=== PATIENT | female | born 2000 | race Caucasian/White ===

== ENCOUNTER 2020-10-06 10:38 | Emergency (ER) | payer SELFPAY ==
[~2020-10-06] VITALS: Ht 165.1 cm; Wt 63.6 kg
[~2020-10-06 10:38] MED LIST: ABILIFY2 MG PO; BENTYL 10MG10 MG/CAP PO; CELEXA 20MG20 MG/TAB PO; DEPO-PROVER150 MG/M1 IM; DESYREL 50MG50 MG PO; PEPCID 20MG TAB20 MG PO; PRILOSEC 20MG20 MG PO; STRATTERA 40MG40 MG PO; VYVANSE30 MG PO; ZOFRAN 4MG T4 MG/TAB PO; [UNRECOGNIZED DRUG - OTHER]
[2020-10-06 11:04] LABS: COLLECTION METHOD CLEAN CATCH
[2020-10-06 11:14] LABS: MUCOUS Present /lpf; PH 7 (5-8); SQUAMOUS EPITHELIAL 0-2 /hpf; URINE APPEARANCE Clear; URINE BACTERIA None Seen /hpf; URINE BILIRUBIN Negative (NEGATIVE); URINE BLOOD 1+ (NEGATIVE); URINE COLOR Straw; URINE GLUCOSE Negative (NEGATIVE); URINE KETONE Negative (NEGATIVE); URINE LEUKOCYTE ESTERASE Negative (NEGATIVE); URINE NITRATE Negative (NEGATIVE); URINE PROTEIN(semi-quant) Negative (NEGATIVE); URINE RBC 0-2 /hpf; URINE UROBILINOGEN Negative (NEGATIVE)
[2020-10-06] MEDS ORDERED: FLAGYL500 MG PO (12:07)
[2020-10-06 12:15] VITALS: BP 134/78; PULSE 76; TEMP 98.2
== END 2020-10-06 12:17 | disposition home or self-care (01) ==
LOC: COL.ER 10:38
PROVIDERS: Nurse Practitioner
DX: N76.0 Acute vaginitis (principal)

== ENCOUNTER 2021-02-10 20:27 | Emergency (ER) | payer MEDICAID ==
[~2021-02-10] VITALS: Ht 172.7 cm; Wt 75.9 kg
[~2021-02-10 20:27] MED LIST changes: +FLAGYL500 MG PO
[2021-02-10 20:43] LABS: COLLECTION METHOD CLEAN CATCH
[2021-02-10 20:58] LABS: AMORPHOUS CRYSTAL Present /uL; MUCOUS Present /lpf; PH 7 (5-8); SQUAMOUS EPITHELIAL 0-2 /hpf; URINE APPEARANCE Cloudy; URINE BACTERIA Rare /hpf; URINE BILIRUBIN Negative (NEGATIVE); URINE BLOOD Negative (NEGATIVE); URINE COLOR Yellow; URINE GLUCOSE Negative (NEGATIVE); URINE KETONE Negative (NEGATIVE); URINE LEUKOCYTE ESTERASE Negative (NEGATIVE); URINE NITRATE Negative (NEGATIVE); URINE PROTEIN(semi-quant) Negative (NEGATIVE); URINE RBC 0-2 /hpf; URINE UROBILINOGEN Negative (NEGATIVE)
[2021-02-10 21:38] VITALS: BP 117/78; PULSE 91; TEMP 97.9
== END 2021-02-10 21:38 | disposition home or self-care (01) ==
LOC: COL.ER 20:27
PROVIDERS: Nurse Practitioner
DX: O26.892 Other specified pregnancy related conditions, second trimester (principal); M54.5 Low back pain; Z91.041 Radiographic dye allergy status; Z91.040 Latex allergy status; Z87.891 Personal history of nicotine dependence; Z3A.19 19 weeks gestation of pregnancy

== ENCOUNTER 2021-05-17 16:40 | Emergency (ER) | payer MEDICAID ==
[~2021-05-17] VITALS: Ht 172.7 cm; Wt 90.9 kg
[2021-05-17 17:15] VITALS: TEMP 98.2
[2021-05-17 19:03] VITALS: BP 124/71; PULSE 90
--- NOTE | 2021-05-17 19:13 | NUR ---
184- THIS NURSE IN ROOM TO COLLECT FM STRIP. PT LAYING SUPINE, SIGNIFICANT OTHER AT BEDSIDE. PT STATES SHE IS BEING SEEN IN THE ER FOR LEFT HIP PAIN, DENIES ANY CONCERNS WITH . EFM X2 APPLIED. PT REPOSITIONED TO LEFT WEDGE. 1854- PO FLUIDS PROVIDED. 1912- MONITORING DC'D AT THIS TIME FOLLOWING REASSURING FHT. QUESTIONS ENCOURAGED AND ANSWERED. ER STAFF NOTIFIED OF REASSURING FHT. TIME ON MONITORING STRIP INCORRECT, STRIP RUN FROM [id number]. CORRECT TIMES WRITTEN ON PAPER STRIP.
== END 2021-05-17 19:03 | disposition home or self-care (01) ==
LOC: COL.ER 16:40
DX: O99.891 Other specified diseases and conditions complicating pregnancy (principal); G57.12 Meralgia paresthetica, left lower limb; M54.9 Dorsalgia, unspecified; Z3A.32 32 weeks gestation of pregnancy

== ENCOUNTER 2021-07-04 12:30 | Outpatient (CLI) | payer MEDICAID ==
--- NOTE | 2021-07-04 13:15 | NUR ---
Patient c/o noticing leaking of fluid a couple of hours ago, reports it was clear, unsure on amount. Denies sexual intercourse in past 48 hours, reports her cervix was checked today or yesterday at OBGYN appointment. SVE closed/50/high, dry exam, no fluid leaking with exam, amnitrace negative. Patient denies requiring a umesh pad, denies any continued leaking of fluid, denies contractions, vaginal bleeding. Reports positive movement. Patient requesting to get out of here as soon as possible. Accompanied by significant other. Ambulatory to unit.
[2021-07-04 13:28] VITALS: BP 129/76; PULSE 90; TEMP 98.1
--- NOTE | 2021-07-04 13:35 | NUR ---
Discharged to home, has reviewed monitor strip, verbal okay to discharge home.
== END 2021-07-04 13:35 | disposition home or self-care (01) ==
LOC: LDRO 12:30
DX: O42.90 Premature rupture of membranes, unspecified as to length of time between rupture and onset of labor, unspecified weeks of gestation (principal); Z3A.00 Weeks of gestation of pregnancy not specified

== ENCOUNTER 2021-07-07 03:42 | Outpatient (CLI) | payer MEDICAID ==
--- NOTE | 2021-07-07 03:50 | NUR ---
PT TO UNIT AMBUALTORY WITH COMPLAINTS OF CONTRACTIONS/ABDOMINAL PAIN. ORIENTED TO ROOM, CHANGED INTO GOWN, EFM X2 APPLIED, SVE PERFORMED, VS OBTAINED. PT DOCTORS IN CONFLUENCE AND STATES SHE IS TO BE INDUCED THIS MORNING.
[2021-07-07 04:00] VITALS: BP 134/86; PULSE 87
[2021-07-07 05:00] VITALS: BP 123/77; PULSE 94
[2021-07-07] MEDS ORDERED: PRENATAL TABLET PO (05:01)
[2021-07-07] MEDS ORDERED: PEPCID 20MG TAB20 MG PO (05:02)
--- NOTE | 2021-07-07 05:15 | NUR ---
Discharge instructions reviewed with pt and significant other, questions invited and answered. Ambulatory off unit.
== END 2021-07-07 05:15 | disposition home or self-care (01) ==
LOC: LDRO 03:42
DX: O62.9 Abnormality of forces of labor, unspecified (principal); Z3A.00 Weeks of gestation of pregnancy not specified

== ENCOUNTER 2022-04-25 10:29 | Emergency (ER) | payer MEDICAID ==
[~2022-04-25] VITALS: Ht 172.7 cm; Wt 90.9 kg
[~2022-04-25 10:29] MED LIST changes: +PRENATAL TABLET PO
[2022-04-25 10:49] VITALS: TEMP 97.5
[2022-04-25 11:24] LABS: COLLECTION METHOD CLEAN CATCH
[2022-04-25 11:41] LABS: MUCOUS Present (NOT PRESENT); PH 6 (5-8); SQUAMOUS EPITHELIAL 0-2 /hpf (0-10); URINE APPEARANCE Hazy (CLEAR/HAZY); URINE BACTERIA None Seen /hpf (NONE SEEN); URINE BLOOD 2+ (NEGATIVE); URINE COLOR Yellow (YELLOW); URINE GLUCOSE Negative (NEGATIVE); URINE KETONE Trace (NEGATIVE); URINE NITRATE Negative (NEGATIVE); URINE PROTEIN(semi-quant) 1+ (NEGATIVE); URINE UROBILINOGEN Negative (NEGATIVE)
[2022-04-25 14:13] VITALS: BP 126/74; PULSE 61
== END 2022-04-25 14:13 | disposition home or self-care (01) ==
LOC: COL.ER 10:29
PROVIDERS: Emergency Medicine
DX: H53.8 Other visual disturbances (principal); R51.9 Headache, unspecified; Z91.040 Latex allergy status
CPT/HCPCS: J1200; J1885; J2765; J7030